=== PATIENT | male | born 1960 | race Caucasian/White ===

== ENCOUNTER 2017-06-02 20:34 | Emergency (ER) | payer MEDICAID ==
--- NOTE | 2017-06-02 21:45 | ED Physician Chart ---
Chief Complaint/HPI - Patient Information Date Seen:: 06/02/17 Time Seen:: 21:05 Chief Complaint:: Pt is intoxicated with alcohol History of Present Illness:: Brought in by ambulance apparently because pt was found to be intoxicated with alcohol. Pt states that he has had chronic scrotal pain with intermittent swelling since 11/2016. Pt denies any penile discharge or bleeding. Pt is not fully cooperative; thus, H & P are limited. Pt has strong alcoholic breath. Pt has no distress. Allergies:: Allergies Allergy/AdvReac Type Severity Reaction Status Date / Time No Known Allergies Allergy Verified 06/02/17 21:09 Vitals:: Vital Signs - 8 hr 06/02/17 20:50 Temp 97.9 F HR 82 RR 18 BP 130/78 O2 Sat % 95 Historian:: Patient Family MD/PCP:: unknown LMP:: N/A Review:: Nurse's Note Reviewed Review of Systems - Review of Systems General/Constitutional: Other (Pt does not cooperate for ROS) Past Medical History - Past Medical History Past Medical History: Other (Pt does not cooperate to provide reliable info on PMH.) Family History: Other (Pt does not cooperate to provide reliable info on FHx.) Social History: Other (Pt does not cooperate to provide reliable info on SHx.) Surgical History: other (Pt does not cooperate to provide reliable info on Surgical Hx.) Medication: Reviewed Family Medical History - Family Member Mother History Unknown: Yes Ethnicity: Non- Hx Family Cancer: No Hx Family Coronary Artery Disease: No Hx Family Congestive Heart Failure: No Hx Family Hypertension: No Hx Family Stroke: No Hx Family Diabetes: No Hx Family Seizures: No Hx Family Dementia: No Hx Family AIDS: No Hx Family HIV: No Hx Family COPD: No Hx Family Hepatitis: No Hx Family Psychiatric Problems: No Hx Family Tuberculosis: No Physical Exam - Physical Examination General/Constitutional: Awake, Well-developed, well-nourished, Alert, No distress Other Gen/Cons comments:: Breathes comfortably, speaks clearly, but is not fully cooperative. Head: Atraumatic Eyes: Lids, conjuctiva normal, PERRL, EOMI Other Eyes comments:: Anicteric sclera Skin: No ecchymosis, Well hydrated, No lymphadenopathy ENMT: External ears, nose nl, Nasal exam nl, Oropharynx nl Neck: Nontender, Full ROM w/o pain, No JVD, No nuchal rigidity, No mass, No stridor Respiratory: Nl effort/Exclusion, Clear to Auscultation, No Wheeze/Rhonchi/Rales Cardio Vascular: RRR, No murmur, gallop, rubs GI: No tenderness/rebounding/guarding, No organomegaly, No hernia, Normal BS's, Nondistended, No mass/bruits Other GI comments:: Abdomen is soft. : No CVA tenderness Other comments:: Normal male external genitalia. Testes descended bilaterally. No scrotal swelling detected. No open wound, penile exudate or blood. No unusual wamrth. No inguinal lymphadenopathy. Extremities: No edema Neuro/Psych: Alert/oriented (knows his name, that he is in hospital, and today is 06/02/17. Spontaneous movements noticed in all 4 extremities. Pt does not cooperate for full neurological exam.) Labs/Radiology/EKG Results - Lab Results Results: Laboratory Tests 06/02/17 06/02/17 22:02 22:02 WBC 4.1 L D RBC 3.70 L Hgb 12.2 L Hct 36.6 L D MCV 98.7 MCH 33.0 H MCHC Differential 33.4 RDW 13.9 Plt Count 60 L D MPV 9.3 Neutrophils (Manual) 35 L Lymphocytes 54 H Monocytes 6 Eosinophils 5 Platelet Estimate DECREASED PLATELETS Sodium 137 Potassium 3.3 L Chloride 108 H Carbon Dioxide 22.7 Anion Gap 9.6 BUN 7 Creatinine 0.6 L Est GFR ( Amer) > 60.0 Est GFR (Non-Af Amer) > 60.0 BUN/Creatinine Ratio 11.7 Glucose 85 Calcium 8.7 Total Bilirubin 0.6 AST 163 H ALT 64 H Alkaline Phosphatase 159 H Total Protein 6.9 Albumin 3.3 L Globulin 3.6 Albumin/Globulin Ratio 0.9 L Ethyl Alcohol 405 H - Radiology Results Results: Testicular ultrasound (preliminary report): No hydrocele, no varicocle or calcification seen. Mild blood flow on color flow increased (can be inflammation ). Bilateral epi smal systs seen. ED Septic Shock - . Is Septic Shock (SBP<90, OR Lactate>4 mmol\L) present?: No - <6hrs of presentation: Vital Signs: Vital Signs - 8 hr 06/02/17 20:50 Temp 97.9 F HR 82 RR 18 BP 130/78 O2 Sat % 95 Reassessment (Disposition) - Reassessment Reassessment:: 0120 Pt rests comfortably and is in no distress. No new complaint or findings. 0705 Pt remains stable. Pt slept through the night uneventfully. Case has been signed off to Dr. Arroyo at about 0705 for continued care. - Diagnosis Diagnosis:: Alcohol intoxication. Alcoholic liver disease. Mild hypokalemia. Scrotal pain, consider orchitis. Empirical antibiotic therapy with Levaquin is given.
[2017-06-02 22:15] LABS: HEMOGLOBIN 12.2 gm/dL (13.2-17.3); MEAN CELL VOLUME 98.7 fl (80-99); MEAN CORPUSCULAR HGB CONC 33.4 pg (28.0-36.0); MEAN PLATELET VOLUME 9.3 fl; PLATELET COUNT 60 Th/cmm (150-400); RED CELL DISTRIBUTION WIDTH 13.9 % (11.5-20.0)
[2017-06-02 22:20] LABS: HEMATOCRIT 36.6 % (39.0-49.0); WHITE BLOOD COUNT 4.1 Th/cmm (4.8-10.8)
[2017-06-02 22:27] LABS: ALB/GLOB RATIO 0.9 (1.0-1.8); ALKALINE PHOSPHATASE 159 U/L (34-104); ANION GAP 9.6 (7.0-16.0); BILIRUBIN,TOTAL 0.6 mg/dL (0.3-1.0); BUN - UREA NITROGEN 7 mg/dL (7-25); BUN/CREATININE RATIO 11.7; CALCIUM SERUM 8.7 mg/dL (8.6-10.3); CARBON DIOXIDE 22.7 mEq/L (21.0-31.0); CHLORIDE 108 mEq/L (98-107); CREATININE - SERUM 0.6 mg/dL (0.7-1.3); GLUCOSE 85 mg/dL (70-105); POTASSIUM SERUM 3.3 mEq/L (3.5-5.1); SGOT 163 U/L (13-39); SGPT/ALT 64 U/L (7-52); SODIUM SERUM 137 mEq/L (136-145)
[2017-06-02 22:50] LABS: EOSINOPHIL 5 % (0-5); NEUTROPHILS 35 % (40-80); PLATELET ESTIMATE DECREASED PLATELETS (NORMAL); TOTAL CELLS COUNTED 100
[2017-06-02] MEDS ORDERED: Multivitamin Inj 10 mL Vial IV ONE (23:10)
[2017-06-02] MEDS ORDERED: Magnesium Sulfate 1 gm/2 mL 2mL Vial IV ONE (23:12)
[2017-06-02] MEDS ORDERED: Thiamine 100 mg/mL 2mL Vial ONE (23:13)
[2017-06-02] MEDS: Multivitamin Inj 10 ML, Thiamine HCL 100 MG, Magnesium Sulfate 2 GM, Folic Acid 1 MG in... IV ONE (23:30)
[2017-06-02] MEDS: Potassium Chloride 20 mEq ER Tab PO ONE (23:36)
[2017-06-02] MEDS ORDERED: Potassium Chloride 20 mEq ER Tab PO ONE (23:39)
[2017-06-03] MEDS ORDERED: Levofloxacin 500mg/100mL 500 MG/100 ML BAG IV ONE (07:20)
[2017-06-03] MEDS: Levofloxacin 500mg/100mL 500 MG/100 ML BAG IV ONE (07:25)
--- NOTE | 2017-06-03 08:48 | ED Physician Chart ---
Chief Complaint/HPI - Patient Information Allergies:: Allergies Allergy/AdvReac Type Severity Reaction Status Date / Time No Known Allergies Allergy Verified 06/02/17 21:09 Vitals:: Vital Signs - 8 hr 06/03/17 07:42 HR 62 RR 16 BP 109/48 O2 Sat % 96 Family Medical History - Family Member Mother History Unknown: Yes Ethnicity: Non- Hx Family Cancer: No Hx Family Coronary Artery Disease: No Hx Family Congestive Heart Failure: No Hx Family Hypertension: No Hx Family Stroke: No Hx Family Diabetes: No Hx Family Seizures: No Hx Family Dementia: No Hx Family AIDS: No Hx Family HIV: No Hx Family COPD: No Hx Family Hepatitis: No Hx Family Psychiatric Problems: No Hx Family Tuberculosis: No Labs/Radiology/EKG Results - Lab Results Results: Laboratory Tests 06/02/17 06/02/17 22:02 22:02 WBC 4.1 L D RBC 3.70 L Hgb 12.2 L Hct 36.6 L D MCV 98.7 MCH 33.0 H MCHC Differential 33.4 RDW 13.9 Plt Count 60 L D MPV 9.3 Neutrophils (Manual) 35 L Lymphocytes 54 H Monocytes 6 Eosinophils 5 Platelet Estimate DECREASED PLATELETS Sodium 137 Potassium 3.3 L Chloride 108 H Carbon Dioxide 22.7 Anion Gap 9.6 BUN 7 Creatinine 0.6 L Est GFR ( Amer) > 60.0 Est GFR (Non-Af Amer) > 60.0 BUN/Creatinine Ratio 11.7 Glucose 85 Calcium 8.7 Total Bilirubin 0.6 AST 163 H ALT 64 H Alkaline Phosphatase 159 H Total Protein 6.9 Albumin 3.3 L Globulin 3.6 Albumin/Globulin Ratio 0.9 L Ethyl Alcohol 405 H Assessment - Assessment General Assessment: improved able to walk without help and thought process was normal. ED Septic Shock - . Is Septic Shock (SBP<90, OR Lactate>4 mmol\L) present?: No - <6hrs of presentation: Vital Signs: Vital Signs - 8 hr 06/03/17 07:42 HR 62 RR 16 BP 109/48 O2 Sat % 96 Reassessment (Disposition) - Reassessment Reassessment Condition:: Improved - Diagnosis Diagnosis:: alcohol intoxication scrotal edema - Aftercare/Follow up Instructions Aftercare/Follow-Up Instructions:: Counseled pt regarding lab results/diagnosis & need follow up, Refer to Discharge Instructions, Counseled pt & family regarding lab results/diagnosis & need follow up Medication Prescribed:: none - Patient Disposition Discharge/Transfer:: Home Condition at Disposition:: Improved
--- NOTE | 2017-06-03 09:16 | Diagnostic Imaging Report ---
Testicular/scrotal ultrasound HISTORY: Pain The right testis measures 3.6 x 1.6 x 2.6 cm. No focal parenchymal lesions. Normal testicular vascular flow. The right epididymis is associated with subcentimeter sonolucent foci suggesting small cysts. No hydrocele or varicocele on the right side. The left testis measures 3.4 x 1.6 x 2.4 cm. No focal parenchymal lesions. Subcentimeter cyst seen within the left epididymis. No hydrocele or varicocele. IMPRESSION: 1. No acute abnormalities 2. Subcentimeter cysts within the right and left epididymal regions.
== END 2017-06-03 09:00 | disposition home or self-care (01) ==
LOC: ER 20:34
DX: F10.129 Alcohol abuse with intoxication, unspecified (principal); E87.6 Hypokalemia; K70.9 Alcoholic liver disease, unspecified; N50.82 Scrotal pain
CPT/HCPCS: 99285; 96365; 96366; 96367; 76870; 36415; 85007; 85027; 80320; 80053; J3411; J1956; J3475; J7030; X6226; X6598